=== PATIENT | female | born 1955 | race Caucasian/White ===

== ENCOUNTER → 2021-01-24 | Outpatient (CLI) | payer MEDICARE | END | disposition home or self-care (01) | LOC: CVU 15:29 | PROVIDERS: ATTEND Internal Medicine Cardiovascular Disease | DX: I37.1 Nonrheumatic pulmonary valve insufficiency (principal); R00.2 Palpitations | CPT/HCPCS: 93306; 93356 ==

== ENCOUNTER → 2021-05-22 | Outpatient (CLI) | payer MEDICARE ==
[~2021-05-22] MED LIST: OMNIPAQUE 350 MG/ML, 150 ML BOTTLE ONE
== END | disposition home or self-care (01) ==
LOC: CFH 14:03
PROVIDERS: ATTEND Internal Medicine Clinical Cardiac Electrophysiology
DX: Z01.818 Encounter for other preprocedural examination (principal); I48.91 Unspecified atrial fibrillation; I25.10 Atherosclerotic heart disease of native coronary artery without angina pectoris; Z20.822 Contact with and (suspected) exposure to COVID-19
CPT/HCPCS: 71046; 75572; 82565; Q9967; U0003; U0005

== ENCOUNTER 2021-05-30 11:06 | Observation (INO) | payer MEDICARE ==
[~2021-05-30] VITALS: Ht 175.3 cm; Wt 103.3 kg
[2021-05-30] MEDS ORDERED: BUPR150T28 PO (11:59)
[2021-05-30] MEDS ORDERED: DILT120C80 PO (11:59)
[2021-05-30] MEDS ORDERED: SODIUM CHLORIDE 0.9% 1,000 ML IV SCH (12:00)
[2021-05-30] MEDS ORDERED: SIMV40TA20 PO (12:01)
[2021-05-30] MEDS ORDERED: ZOLP-413 PO (12:01)
[2021-05-30] MEDS ORDERED: RIVA20TA PO (12:01)
[2021-05-30] MEDS ORDERED: CYAN2000 PO (12:01)
[2021-05-30 12:29] VITALS: BP 148/87
[2021-05-30 12:40] LABS: ALANINE AMINOTRANSFERASE 21 U/L (12-78); ALBUMIN 3.7 g/dL (3.4-5.0); ANION GAP 7 mmol/L (5-15); CALCIUM 8.7 mg/dL (8.5-10.1); CHLORIDE 106 mmol/L (98-107); CREATININE 1.17 mg/dL (0.7-1.3)
[2021-05-30 12:43] LABS: ALKALINE PHOSPHATASE 82 U/L (45-117); BILIRUBIN,TOTAL 0.7 mg/dL (0.2-1.0); TOTAL PROTEIN 6.8 g/dL (6.4-8.2)
[2021-05-30 12:44] LABS: BASOPHILS % (AUTO) 0 % (0-1); EOSINOPHILS % (AUTO) 2 % (1-7); LYMPHOCYTES % (AUTO) 29 % (22-44); MEAN CORPUSCULAR HEMOGLOBIN 29.4 pg (27.5-34.5); MEAN CORPUSCULAR HGB CONC 33.3 g/dL (33.2-36.2); MEAN PLATELET VOLUME 8.4 fL (7.4-10.4); MONOCYTES % (AUTO) 10 % (2-9); NEUTROPHILS % (AUTO) 59 % (42-75); PLATELET COUNT 220 x10^3/uL (130-400); RED CELL DISTRIBUTION WIDTH 14.5 % (9.4-14.8)
[2021-05-30 12:45] LABS: INTERNATIONAL NORMALIZED RATIO 1.01 (0.93-1.1); PROTHROMBIN TIME 10.8 Seconds (9.6-11.5)
[2021-05-30] MEDS ORDERED: FENTANYL PF 100 MCG/2ML ONE (13:25)
[2021-05-30] MEDS ORDERED: RIVAROXABAN 20 MG TABLET ONE (13:32)
[2021-05-30] MEDS ORDERED: LIDOCAINE 1%, 20ML ONE (13:32)
[2021-05-30] MEDS ORDERED: LIDOCAINE-MPF 2% ,5ML ONE (14:03)
[2021-05-30] MEDS ORDERED: PROPOFOL 10 MG/ML, 20ML ONE (14:03)
[2021-05-30] MEDS ORDERED: ROCURONIUM 10MG/ML,5ML ONE ×2 (14:03→15:14)
[2021-05-30] MEDS ORDERED: NEOSTIGMINE 1 MG/ML, 10ML ONE (14:03)
[2021-05-30] MEDS ORDERED: DEXAMETHASONE 4 MG/ML, 1ML ONE (14:03)
[2021-05-30] MEDS ORDERED: SUCCINYLCHOLINE 20 MG/ML, 10ML ONE (14:03)
[2021-05-30] MEDS ORDERED: GLYCOPYRROLATE 0.2MG/1ML, 5ML ONE (14:03)
[2021-05-30] MEDS ORDERED: ONDANSETRON 2MG/ML, 2ML ONE (14:03)
[2021-05-30] MEDS ORDERED: HEPARIN 1,000 UNITS/ML, 10ML ONE (15:14)
[2021-05-30] MEDS ORDERED: PANTOPRAZOLE 20MG TABLET PO ONE (16:30)
[2021-05-30] MEDS ORDERED: ACETAMINOPHEN 325 MG TABLET ONE (16:48)
[2021-05-30] MEDS ORDERED: OXYcodone 5 MG/5 ML ORAL.SOL UDC ONE (16:49)
[2021-05-30] MEDS ORDERED: ACETAMINOPHEN 650 MG/20.3 ML UDC ONE (16:53)
[2021-05-30] MEDS: RIVAROXABAN 20 MG TABLET PO SCH (16:54)
[2021-05-30] MEDS ORDERED: LABETALOL 5MG/ML, 20ML IV PRN (17:00)
[2021-05-30] MEDS ORDERED: ONDANSETRON 2MG/ML, 2ML IVPush PRN (17:00)
[2021-05-30] MEDS ORDERED: OXYcodone 5 MG/5 ML ORAL.SOL UDC PO PRN (17:00)
[2021-05-30] MEDS ORDERED: EPHEDRINE 50 MG/ML, 1ML IVPush PRN (17:00)
[2021-05-30] MEDS ORDERED: ACETAMINOPHEN 325 MG TABLET PO PRN ×2 (17:00→22:00)
[2021-05-30] MEDS ORDERED: HYDROmorphone 1 MG/ML, 1ML INJ IVPush PRN (17:00)
[2021-05-30] MEDS ORDERED: hydrALAzine 20 MG/ML, 1ML IV PRN (17:00)
[2021-05-30] MEDS ORDERED: PROMETHAZINE 25 MG/ML, 1ML IVPush PRN (17:00)
[2021-05-30] MEDS ORDERED: FENTANYL PF 100 MCG/2ML IV PRN (17:00)
[2021-05-30 19:12] VITALS: BP 127/79
[2021-05-30] MEDS ORDERED: ZOLPIDEM 5MG TABLET PO SCH (21:00)
[2021-05-30] MEDS: COLCHICINE 0.6 MG CAPSULE PO SCH (21:27)
[2021-05-31 00:32] VITALS: BP 147/82
[2021-05-31 06:27] VITALS: BP 134/78
[2021-05-31] MEDS: COLCHICINE 0.6 MG CAPSULE PO SCH (09:23)
[2021-05-31] MEDS: RIVAROXABAN 20 MG TABLET PO SCH (09:23)
[2021-05-31] MEDS ORDERED: ACET325T26 PO (10:45)
[2021-05-31] MEDS ORDERED: PANT20TA2 PO (10:45)
[2021-05-31] MEDS ORDERED: COLC0.6C3 PO (10:45)
[2021-05-31 13:01] VITALS: BP 134/73
== END 2021-05-31 13:28 | disposition home or self-care (01) ==
LOC: CACL 11:06 → ORIP 16:16 → 5SO 17:44 → DCLOUNGE 05-31 13:22
PROVIDERS: ADMIT Internal Medicine Clinical Cardiac Electrophysiology; ATTEND Internal Medicine Clinical Cardiac Electrophysiology
DX: I48.0 Paroxysmal atrial fibrillation (principal); E78.5 Hyperlipidemia, unspecified; Z79.899 Other long term (current) drug therapy
CPT/HCPCS: 36415; 80053; 85025; 85347; 85610; 93005; 93308; 93312; 93321; 93325; 93613; 93656; 93662; C1730; C1732; C1759; C1766; C1769; C1893; C1894; G0378; J0330; J1100; J1644; J2405; J2704; J2710; J3010; J3490